=== PATIENT | female | born 1985 | race Caucasian/White ===

== ENCOUNTER 2018-12-04 08:29 | Outpatient (CLI) | payer BC, OTHER ==
--- NOTE | 2018-12-04 11:07 | RAD ---
RIGHT FOREARM 2 VIEWS: Date: 12/04/18 HISTORY: Forearm injury 2 weeks ago. FINDINGS: There are no signs of fracture, dislocation, or other bony findings. IMPRESSION: Negative right forearm. POS: [facility]
== END 2018-12-04 08:30 | disposition home or self-care (01) ==
LOC: SCSRAD 08:29
PROVIDERS: ATTEND Physician Assistant Medical
DX: S59.911A Unspecified injury of right forearm, initial encounter (principal)

== ENCOUNTER 2022-01-22 14:26 | Outpatient (CLI) | payer OTHER, BC | END 2022-01-22 14:27 | disposition home or self-care (01) | LOC: SCSRAD 14:26 | PROVIDERS: ATTEND Physician Assistant | DX: M25.512 Pain in left shoulder (principal) ==